=== PATIENT | female | born 1955 | race Hispanic/Latino ===

== ENCOUNTER → 2018-11-22 | Outpatient (CLI) | payer OTHER | END | disposition home or self-care (01) | LOC: RAH 08:47 | PROVIDERS: ATTEND Internal Medicine Gastroenterology | DX: K74.3 Primary biliary cirrhosis (principal) | CPT/HCPCS: 76700; 93975 ==

== ENCOUNTER 2019-08-22 12:15 | Inpatient (IN) | payer OTHER ==
[~2019-08-22] VITALS: Ht 157.5 cm; Wt 65.8 kg
[2019-08-22 13:43] LABS: ABG BASE EXCESS 0.2 mmol/L (-2.0-3.0); ABG HCO3 22.8 mmol/L (21.0-28.0); ABG OXYGEN SATURATION 89.3 % (95.0-99.0); ABG PCO2 32 mmHg (32-45)
[2019-08-22 14:18] LABS: BASOPHILS % (AUTO) 0.2 % (0.0-5.0); HEMATOCRIT 39.4 % (36-48); LYMPHOCYTES % (AUTO) 47.5 % (21.0-51.0); MEAN CORPUSCULAR HEMOGLOBIN 28.8 pg (27.0-33.0); MEAN CORPUSCULAR VOLUME 87.4 fL (79-99); MONOCYTES % (AUTO) 8.1 % (3.0-13.0); NEUTROPHILS % (AUTO) 43.4 % (40.0-77.0); PLATELET COUNT (AUTO) 109 K/uL (130-400); RED BLOOD CELL COUNT(AUTO) 4.51 MIL/uL (4.00-5.50); RED CELL DISTRIBUTION WIDTH 12.8 % (11.0-15.5); WHITE BLOOD COUNT (AUTO) 4.9 K/uL (4.8-10.8)
[2019-08-22 14:24] LABS: INR 0.98 (0.85-1.15); PROTHROMBIN TIME 10.6 SEC (9.6-11.6)
[2019-08-22] MEDS ORDERED: GUAIFENESIN-DM 200/20 MG 10 ML PO PRN (16:00)
[2019-08-22] MEDS ORDERED: DiphenhydrAMINE HCL 50 MG/ML VIAL IV PRN (16:00)
[2019-08-22] MEDS ORDERED: ONDANSETRON HCL 4 MG/2 ML VIAL IV PRN (16:00)
[2019-08-22] MEDS: CEFTRIAXONE SODIUM 1 GM IVP SCH (16:00)
[2019-08-22] MEDS ORDERED: ERGOCALCIFEROL (VITAMIN D2) 50,000 UNIT CAPSULE PO ONE (16:00)
[2019-08-22] MEDS ORDERED: DIPHENHYDRAMINE HCL 25 MG CAPSULE PO PRN (16:00)
[2019-08-22] MEDS ORDERED: MAG HYDROX/AL HYDROX/SIMETH ES 30 ML SUSP UDCUP PO PRN (16:00)
[2019-08-22] MEDS ORDERED: ACETAMINOPHEN 325 MG TAB PO PRN ×2 (16:00)
[2019-08-22] MEDS ORDERED: NITROGLYCERIN 0.4 MG SL TAB SL PRN (16:00)
[2019-08-22] MEDS ORDERED: LACTULOSE 20 GM/30 ML UDCUP PO PRN (16:00)
[2019-08-22] MEDS ORDERED: HYDRALAZINE HCL 20 MG/ML VIAL IV PRN (16:00)
[2019-08-22 16:11] LABS: CREATININE 0.7 mg/dL (0.5-1.5)
[2019-08-22 16:15] LABS: ALBUMIN 3.1 g/dL (3.5-5.0); BILIRUBIN,TOTAL 0.3 mg/dL (0.2-1.0); CRP QUANTITATIVE 74.8 mg/L (0.00-9.0); TOTAL PROTEIN, SERUM 7.3 g/dL (6.0-8.3)
[2019-08-22] MEDS ORDERED: ERGOCALCIFEROL (VITAMIN D2) 50,000 UNIT CAPSULE ONE (17:45)
[2019-08-22] MEDS ORDERED: CEFTRIAXONE SODIUM 1 GM ONE (17:45)
[2019-08-22] MEDS: FAMOTIDINE 20MG TAB 20 MG TAB PO SCH (21:00)
[2019-08-22] MEDS: ENOXAPARIN SODIUM 40 MG/0.4 ML SYRINGE SQ SCH (21:00)
[2019-08-22] MEDS: DOXYCYCLINE HYCLATE 100 MG TABLET PO SCH (21:00)
[2019-08-22] MEDS: ACETYLCYSTEINE 600 MG CAPSULE PO SCH (21:00)
[2019-08-22] MEDS: BENZONATATE 100 MG CAPSULE PO SCH (21:00)
[2019-08-22] MEDS: METHYLPREDNISOLONE SOD SUCC 40MG/ML 1ML IVP SCH (21:00)
[2019-08-23] MEDS ORDERED: METHYLPREDNISOLONE SOD SUCC 40MG/ML 1ML ONE (00:39)
[2019-08-23] MEDS ORDERED: ASCORBIC ACID 500 MG TAB ONE (00:39)
[2019-08-23] MEDS ORDERED: DOXYCYCLINE HYCLATE 100 MG TABLET PO ONE (00:39)
[2019-08-23] MEDS ORDERED: ZINC SULFATE 220 CAPSULE ONE (00:40)
[2019-08-23] MEDS ORDERED: BENZONATATE 100 MG CAPSULE PO ONE (00:40)
[2019-08-23] MEDS ORDERED: ENOXAPARIN SODIUM 40 MG/0.4 ML SYRINGE SQ ONE (00:41)
[2019-08-23] MEDS ORDERED: FAMOTIDINE/PF 20 MG/2 ML VIAL IV ONE (00:41)
[2019-08-23 02:20] VITALS: BP 112/66
[2019-08-23] MEDS: CEFTRIAXONE SODIUM 1 GM IVP SCH ×2 (04:12→16:46)
[2019-08-23 04:52] VITALS: BP 137/51
[2019-08-23 06:58] LABS: BASOPHILS % (AUTO) 0.2 % (0.0-5.0); LYMPHOCYTES % (AUTO) 35.2 % (21.0-51.0); MEAN CORPUSCULAR HGB CONC 33.5 g/dL (32.0-36.0); MEAN CORPUSCULAR VOLUME 86.7 fL (79-99); MONOCYTES % (AUTO) 7.1 % (3.0-13.0); NEUTROPHILS % (AUTO) 57.3 % (40.0-77.0); PLATELET COUNT (AUTO) 142 K/uL (130-400); RED BLOOD CELL COUNT(AUTO) 4.27 MIL/uL (4.00-5.50); RED CELL DISTRIBUTION WIDTH 12.9 % (11.0-15.5); WHITE BLOOD COUNT (AUTO) 5.7 K/uL (4.8-10.8)
[2019-08-23 07:07] LABS: ALBUMIN 2.8 g/dL (3.5-5.0); BILIRUBIN,TOTAL 0.3 mg/dL (0.2-1.0); CREATININE 0.7 mg/dL (0.5-1.5); CRP QUANTITATIVE 109.1 mg/L (0.00-9.0); POTASSIUM 3.5 mmol/L (3.5-5.1); TOTAL PROTEIN, SERUM 6.9 g/dL (6.0-8.3)
[2019-08-23 08:00] VITALS: BP 122/60
[2019-08-23] MEDS: FAMOTIDINE 20MG TAB 20 MG TAB PO SCH ×2 (08:22→19:52)
[2019-08-23] MEDS: ACETYLCYSTEINE 600 MG CAPSULE PO SCH ×2 (08:22→19:52)
[2019-08-23] MEDS: DOXYCYCLINE HYCLATE 100 MG TABLET PO SCH ×2 (08:22→19:52)
[2019-08-23] MEDS: ASCORBIC ACID 500 MG TAB PO SCH (08:22)
[2019-08-23] MEDS: ZINC SULFATE 220 CAPSULE PO SCH (08:23)
[2019-08-23] MEDS: ENOXAPARIN SODIUM 40 MG/0.4 ML SYRINGE SQ SCH ×2 (08:23→19:53)
[2019-08-23] MEDS: METHYLPREDNISOLONE SOD SUCC 40MG/ML 1ML IVP SCH ×3 (08:24→19:52)
[2019-08-23] MEDS: BENZONATATE 100 MG CAPSULE PO SCH ×3 (08:24→19:52)
[2019-08-23] MEDS ORDERED: ENOXAPARIN SODIUM 40 MG/0.4 ML SYRINGE SQ SCH (09:00)
--- NOTE | 2019-08-23 10:43 | NUR ---
ISABEL NOTE/IA UNABLE TO MEET WITH PATIENT IN ROOM DUE TO IN RESTRICTIVE PART OF HOSPITAL. DAUGHTER, SHEILA SPENCER, CALLED. PER DAUGHTER, PATIENT LIVES WITH SPOUSE, INDEPENDENT WITH ADLS, NO DME IN USE, AND FEELS SAFE TO RETURN HOME AFTER HOSPITAL DISCHARGE. Addendum: 08/23/19 at 1046 by RAFIA YANES RN CM Amended: Links added.
--- NOTE | 2019-08-23 10:49 | NUR ---
CHART CHECK COMPLETED. Pt IS A 64 Y.O. FEMALE ADMITTED SECONDARY TO ACUTE RESPIRATORY FAILURE, COVID 19. Pt HAS A PAST MEDICAL HISTORY OF HYPERTENSION, HIGH CHOLESTEROL, CABG, CAD. Pt CURRENTLY ON REGULAR TEXTURE, THIN LIQUIDS. NO S/S OF ASPIRATION REPORTED AT THIS TIME. SKILLED SPEECH THERAPY IS NOT RECOMMENDED AT THIS TIME. Addendum: 08/23/19 at 1052 by AILYN CONTRERAS, [facility] Amended: Links added.
[2019-08-23 12:00] VITALS: BP 114/62
[2019-08-23 15:30] VITALS: BP 122/76
--- NOTE | 2019-08-23 17:47 | NUR ---
AAOX4 IN BED IN NO APPARENT DISTRESS. COVID19 PUI, ISOLATION PRECAUTIONS MAINTAINED. DENIES ANY NEEDS/PAIN. RESPIRATIONS EVEN AND UNLABORED AT REST. O2 VIA NC AT 4L, O2 SATS MAINTAINING. SOB WITH EXERTION. GOOD APPETITE. MEDICATIONS ADMINISTERED DIRECTED. CONTINUOUS MONITORING ONGOING. SAFETY MEASURES IN PLACE.
[2019-08-23 19:00] VITALS: BP 132/74
--- NOTE | 2019-08-23 20:00 | NUR ---
ASSESSMENT NOTE/TEACHING PATIENT AWAKE, ALERT, OX4, NO SOB, NO C/O PAIN AT THIS TIME, NO RESPIRATORY DISTRESS , OXYGEN AT 4 L N/C , TEACH PATIENT PLAN OF CARE AND EXPECTED OUTCOME, PATIENT VERBALIZES UNDERSTANDING VIA TEACH BACK
--- NOTE | 2019-08-23 22:59 | NUR ---
OXYGEN DECREASE OXYGEN TO 3 L N/C SATURATION 94 % , NO RESPIRATORY DISTRESS AT THIS TIME
[2019-08-24] VITALS: BP 128/83
--- NOTE | 2019-08-24 | NUR ---
NURSING OBS RESTING CONTINUE WITH OXYGEN AT 3 L N/C,SAT 94/95 %, CALL CAMACHO AT REACH
[2019-08-24 04:00] VITALS: BP 129/75
[2019-08-24] MEDS ORDERED: URSO500T10 PO (04:24)
[2019-08-24] MEDS ORDERED: metoprolol er PO (04:24)
[2019-08-24] MEDS ORDERED: FLUT1BLS3 IH (04:24)
[2019-08-24] MEDS ORDERED: LEVO75TA10 PO (04:24)
[2019-08-24] MEDS: CEFTRIAXONE SODIUM 1 GM IVP SCH ×2 (04:32→16:30)
[2019-08-24 05:36] LABS: BASOPHILS % (AUTO) 0.2 % (0.0-5.0); HEMATOCRIT 36.3 % (36-48); LYMPHOCYTES % (AUTO) 37.7 % (21.0-51.0); MEAN CORPUSCULAR HEMOGLOBIN 28.4 pg (27.0-33.0); MEAN CORPUSCULAR HGB CONC 33.1 g/dL (32.0-36.0); MONOCYTES % (AUTO) 9.7 % (3.0-13.0); NEUTROPHILS % (AUTO) 52.1 % (40.0-77.0); PLATELET COUNT (AUTO) 170 K/uL (130-400); RED BLOOD CELL COUNT(AUTO) 4.22 MIL/uL (4.00-5.50); RED CELL DISTRIBUTION WIDTH 12.8 % (11.0-15.5); WHITE BLOOD COUNT (AUTO) 5.8 K/uL (4.8-10.8)
[2019-08-24 06:56] LABS: ALBUMIN 2.6 g/dL (3.5-5.0); BILIRUBIN,TOTAL 0.3 mg/dL (0.2-1.0); CREATININE 0.6 mg/dL (0.5-1.5); CRP QUANTITATIVE 88.7 mg/L (0.00-9.0); POTASSIUM 3.3 mmol/L (3.5-5.1); TOTAL PROTEIN, SERUM 6.8 g/dL (6.0-8.3)
[2019-08-24 08:00] VITALS: BP 150/74
--- NOTE | 2019-08-24 08:00 | NUR ---
AAOX4 IN BED IN NO APPARENT DISTRESS. COVID19+, ISOLATION PRECAUTIONS MAINTAINED. DENIES ANY NEEDS/PAIN. RESPIRATIONS EVEN AND UNLABORED AT REST. O2 VIA NC AT 3L, O2 SAT STABLE. PLAN OF CARE REVIEWED. CONTINUOUS MONITORING ONGOING. SAFETY MEASURES IN PLACE.
[2019-08-24] MEDS: ZINC SULFATE 220 CAPSULE PO SCH (08:40)
[2019-08-24] MEDS: ASCORBIC ACID 500 MG TAB PO SCH (08:40)
[2019-08-24] MEDS: DOXYCYCLINE HYCLATE 100 MG TABLET PO SCH ×2 (08:40→19:37)
[2019-08-24] MEDS: ACETYLCYSTEINE 600 MG CAPSULE PO SCH ×2 (08:41→19:37)
[2019-08-24] MEDS: BENZONATATE 100 MG CAPSULE PO SCH ×3 (08:41→19:37)
[2019-08-24] MEDS: METHYLPREDNISOLONE SOD SUCC 40MG/ML 1ML IVP SCH ×3 (08:41→19:37)
[2019-08-24] MEDS: ENOXAPARIN SODIUM 40 MG/0.4 ML SYRINGE SQ SCH ×2 (08:42→19:38)
[2019-08-24] MEDS: FAMOTIDINE 20MG TAB 20 MG TAB PO SCH ×2 (09:00→19:37)
[2019-08-24 11:30] VITALS: BP 142/78
[2019-08-24 15:30] VITALS: BP 124/75
[2019-08-24 19:21] VITALS: BP 131/80
--- NOTE | 2019-08-24 20:00 | NUR ---
assessment note patient resting comfortably, oxygen at 3 n.c , continue with weaning parameters , teach plan of care and expected outcome, verbalizes understanding via teach back
[2019-08-25] VITALS (7 sets, daily range): BP systolic 143–164; BP diastolic 77–94
--- NOTE | 2019-08-25 00:30 | NUR ---
oxygen weaning oxygen parameters, oxygen saturation 95 % on 3 l n/c, decrease oxygen to 2 ln/c saturation 93 94 % CONTINUE TO MONITOR OXYGEN SATURATION
[2019-08-25] MEDS: CEFTRIAXONE SODIUM 1 GM IVP SCH ×2 (04:17→15:00)
[2019-08-25 06:12] LABS: BASOPHILS % (AUTO) 0.1 % (0.0-5.0); HEMATOCRIT 37.3 % (36-48); LYMPHOCYTES % (AUTO) 25.4 % (21.0-51.0); MEAN CORPUSCULAR HEMOGLOBIN 29.1 pg (27.0-33.0); MEAN CORPUSCULAR HGB CONC 33.8 g/dL (32.0-36.0); MEAN CORPUSCULAR VOLUME 86.1 fL (79-99); MONOCYTES % (AUTO) 7.3 % (3.0-13.0); NEUTROPHILS % (AUTO) 66.8 % (40.0-77.0); PLATELET COUNT (AUTO) 213 K/uL (130-400); RED BLOOD CELL COUNT(AUTO) 4.33 MIL/uL (4.00-5.50); RED CELL DISTRIBUTION WIDTH 12.7 % (11.0-15.5); WHITE BLOOD COUNT (AUTO) 7.1 K/uL (4.8-10.8)
[2019-08-25 06:27] LABS: ALBUMIN 2.5 g/dL (3.5-5.0); BILIRUBIN,TOTAL 0.3 mg/dL (0.2-1.0); CREATININE 0.7 mg/dL (0.5-1.5); CRP QUANTITATIVE 30.4 mg/L (0.00-9.0); POTASSIUM 3.8 mmol/L (3.5-5.1); TOTAL PROTEIN, SERUM 6.7 g/dL (6.0-8.3)
[2019-08-25] MEDS: FAMOTIDINE 20MG TAB 20 MG TAB PO SCH ×2 (09:00→19:32)
[2019-08-25] MEDS: BENZONATATE 100 MG CAPSULE PO SCH ×3 (09:11→19:31)
[2019-08-25] MEDS: ZINC SULFATE 220 CAPSULE PO SCH (09:11)
[2019-08-25] MEDS: ASCORBIC ACID 500 MG TAB PO SCH (09:11)
[2019-08-25] MEDS: ACETYLCYSTEINE 600 MG CAPSULE PO SCH ×2 (09:11→19:32)
[2019-08-25] MEDS: DOXYCYCLINE HYCLATE 100 MG TABLET PO SCH ×2 (09:11→19:31)
[2019-08-25] MEDS: ENOXAPARIN SODIUM 40 MG/0.4 ML SYRINGE SQ SCH (09:12)
[2019-08-25] MEDS: METHYLPREDNISOLONE SOD SUCC 40MG/ML 1ML IVP SCH ×3 (09:12→19:32)
--- NOTE | 2019-08-25 18:24 | NUR ---
AAOX4 LYING IN BED IN NO APPARENT DISTRESS. COVID19+, ISOLATION PRECAUTIONS MAINTAINED. DENIES ANY NEEDS/PAIN. RESPIRATIONS EVEN AND UNLABORED AT REST. O2 VIA NC AT 1L, O2 SAT STABLE. CONTINUOUS MONITORING ONGOING. SAFETY MEASURES IN PLACE.
[2019-08-25] MEDS: URSODIOL 500 MG PO SCH (19:32)
--- NOTE | 2019-08-25 20:00 | NUR ---
ASSESSMENT NOTE PATIENT AWAKE ALERT, OX3, NO SOB , NO C.O PAIN AT THIS TIME, O2 AT 2 L N/C, NO RESPIRATORY DISTRESS AT THIS TIME, CONTINUE WEANING PARAMETERS WITH OXYGEN, TEACH PATIENT PLAN OF CARE AND EXPECTED OUTCOME, PATIENT VERBALIZES UNDERSTANDING VIA TEACH BACK
[2019-08-26 03:29] VITALS: BP 165/89
[2019-08-26] MEDS: CEFTRIAXONE SODIUM 1 GM IVP SCH ×2 (04:56→16:58)
[2019-08-26 08:26] VITALS: BP 161/69
[2019-08-26] MEDS: TRELEGY ELLIPTA IH SCH (09:00)
[2019-08-26] MEDS: URSODIOL 500 MG PO SCH ×2 (09:00→20:00)
[2019-08-26] MEDS: FAMOTIDINE 20MG TAB 20 MG TAB PO SCH ×2 (09:00→19:42)
[2019-08-26] MEDS: ASCORBIC ACID 500 MG TAB PO SCH (09:41)
[2019-08-26] MEDS: METHYLPREDNISOLONE SOD SUCC 40MG/ML 1ML IVP SCH ×3 (09:41→19:42)
[2019-08-26] MEDS: DOXYCYCLINE HYCLATE 100 MG TABLET PO SCH ×2 (09:41→19:42)
[2019-08-26] MEDS: METOPROLOL SUCCINATE 50 MG TAB.SR.24H PO SCH (09:41)
[2019-08-26] MEDS: ACETYLCYSTEINE 600 MG CAPSULE PO SCH ×2 (09:41→19:42)
[2019-08-26] MEDS: ZINC SULFATE 220 CAPSULE PO SCH (09:41)
[2019-08-26] MEDS: BENZONATATE 100 MG CAPSULE PO SCH ×3 (09:41→19:42)
[2019-08-26] MEDS: LEVOTHYROXINE 75 MCG TABLET PO SCH (09:41)
[2019-08-26] MEDS: ENOXAPARIN SODIUM 40 MG/0.4 ML SYRINGE SQ SCH (09:42)
[2019-08-26 12:23] VITALS: BP 159/79
[2019-08-26 17:24] VITALS: BP 166/78
--- NOTE | 2019-08-26 17:50 | NUR ---
AAOX4. OOB IN CHAIR IN NO APPARENT DISTRESS. COVID19+, ISOLATION PRECAUTIONS MAINTAINED. DENIES ANY NEEDS/PAIN. RESPIRATIONS EVEN AND UNLABORED AT REST. MILD SOB NOTED FROM TRANSFERRING FROM BED TO CHAIR. O2 VIA NC AT 2L, O2 SAT STABLE. CONTINUOUS MONITORING ONGOING. SAFETY MEASURES IN PLACE.
[2019-08-26 20:00] VITALS: BP 164/90
--- NOTE | 2019-08-26 20:00 | NUR ---
PT IS AA03. JUSTIN. STATES IS FEELING MUCH BETTER. WEANED DOWN TO 1LPM NASAL CANNULA. STATES SHE FELT SOB EARLIER AND WHEN AMBULATING. POSSIBLE DC FOR THE AM. HAD BM TODAY. ABLE TO TAKE MEDICATIONS WELL. NO CONCERNS AT THIS TIME.
[2019-08-26 23:35] VITALS: BP 152/73
[2019-08-27 04:02] VITALS: BP 166/81
[2019-08-27] MEDS: CEFTRIAXONE SODIUM 1 GM IVP SCH (04:43)
--- NOTE | 2019-08-27 04:43 | NUR ---
SBP 166, HYDRALAZINE PRN GIVEN AT THIS TIME.
[2019-08-27 06:31] LABS: BASOPHILS % (AUTO) 0.1 % (0.0-5.0); HEMATOCRIT 36.9 % (36-48); MEAN CORPUSCULAR HEMOGLOBIN 28.4 pg (27.0-33.0); MEAN CORPUSCULAR HGB CONC 33.3 g/dL (32.0-36.0); MEAN CORPUSCULAR VOLUME 85.2 fL (79-99); MONOCYTES % (AUTO) 6.9 % (3.0-13.0); NEUTROPHILS % (AUTO) 61.9 % (40.0-77.0); PLATELET COUNT (AUTO) 227 K/uL (130-400); RED BLOOD CELL COUNT(AUTO) 4.33 MIL/uL (4.00-5.50); RED CELL DISTRIBUTION WIDTH 12.5 % (11.0-15.5); WHITE BLOOD COUNT (AUTO) 6.8 K/uL (4.8-10.8)
[2019-08-27 06:57] LABS: ALANINE AMINOTRANSFERASE 34 U/L (12-78); ALBUMIN 2.5 g/dL (3.5-5.0); ASPARTATE AMINOTRANSFERASE 32 U/L (10-37); BILIRUBIN,TOTAL 0.3 mg/dL (0.2-1.0); CARBON DIOXIDE 24 mmol/L (21-32); CHLORIDE 105 mmol/L (101-111); CREATININE 0.6 mg/dL (0.5-1.5); GLOMERULAR FILTR. RATE CALC 107 mL/min (>60); GLUCOSE,RANDOM 193 mg/dL (70-105); LACTATE DEHYDROGENASE 280 U/L (81-234); POTASSIUM 3.8 mmol/L (3.5-5.1); SODIUM SERUM 138 mmol/L (136-145); TOTAL PROTEIN, SERUM 6.3 g/dL (6.0-8.3); UREA NITROGEN, BLOOD 21 mg/dL (7-18)
[2019-08-27 07:26] LABS: HEMOGLOBIN A1C 6.9 % (4.0-6.0)
[2019-08-27] MEDS: DOXYCYCLINE HYCLATE 100 MG TABLET PO SCH ×2 (07:50→19:53)
[2019-08-27] MEDS: METFORMIN HCL 500 MG TABLET PO SCH ×3 (07:50→16:07)
[2019-08-27] MEDS: BENZONATATE 100 MG CAPSULE PO SCH ×3 (07:50→21:41)
[2019-08-27] MEDS: ASCORBIC ACID 500 MG TAB PO SCH (07:50)
[2019-08-27] MEDS: LEVOTHYROXINE 75 MCG TABLET PO SCH (07:50)
[2019-08-27] MEDS: METHYLPREDNISOLONE SOD SUCC 40MG/ML 1ML IVP SCH (07:50)
[2019-08-27] MEDS: ACETYLCYSTEINE 600 MG CAPSULE PO SCH ×2 (07:50→19:53)
[2019-08-27] MEDS: ZINC SULFATE 220 CAPSULE PO SCH (07:50)
[2019-08-27] MEDS: TRELEGY ELLIPTA IH SCH (07:51)
[2019-08-27] MEDS: URSODIOL 500 MG PO SCH ×2 (07:51→19:53)
[2019-08-27] MEDS: ENOXAPARIN SODIUM 40 MG/0.4 ML SYRINGE SQ SCH (07:51)
[2019-08-27] MEDS: FAMOTIDINE 20MG TAB 20 MG TAB PO SCH ×2 (07:51→19:53)
[2019-08-27] MEDS: METOPROLOL SUCCINATE 50 MG TAB.SR.24H PO SCH (07:52)
[2019-08-27 08:00] VITALS: BP 130/64
[2019-08-27] MEDS ORDERED: APIX2.5T PO (10:32)
[2019-08-27] MEDS ORDERED: METF-444 PO (10:32)
[2019-08-27] MEDS ORDERED: DEXA6TAB PO (10:32)
[2019-08-27] MEDS ORDERED: BENZ-39 PO (11:22)
[2019-08-27 12:00] VITALS: BP 138/73
[2019-08-27] MEDS: DEXAMETHASONE 4 MG TAB PO SCH ×2 (15:10→21:41)
[2019-08-27 16:00] VITALS: BP 139/72
[2019-08-27 20:57] VITALS: BP 153/81
[2019-08-28 00:06] VITALS: BP 145/91
[2019-08-28 03:59] VITALS: BP 157/82
[2019-08-28 05:02] LABS: BASOPHILS % (AUTO) 0.2 % (0.0-5.0); HEMATOCRIT 37.8 % (36-48); LYMPHOCYTES % (AUTO) 22.6 % (21.0-51.0); MEAN CORPUSCULAR HEMOGLOBIN 28.5 pg (27.0-33.0); MEAN CORPUSCULAR HGB CONC 33.3 g/dL (32.0-36.0); MEAN CORPUSCULAR VOLUME 85.5 fL (79-99); MONOCYTES % (AUTO) 5.9 % (3.0-13.0); NEUTROPHILS % (AUTO) 67.5 % (40.0-77.0); PLATELET COUNT (AUTO) 235 K/uL (130-400); RED BLOOD CELL COUNT(AUTO) 4.42 MIL/uL (4.00-5.50); RED CELL DISTRIBUTION WIDTH 12.5 % (11.0-15.5); WHITE BLOOD COUNT (AUTO) 8.3 K/uL (4.8-10.8)
[2019-08-28 06:29] LABS: ALANINE AMINOTRANSFERASE 34 U/L (12-78); ALBUMIN 2.5 g/dL (3.5-5.0); ASPARTATE AMINOTRANSFERASE 25 U/L (10-37); BILIRUBIN,TOTAL 0.4 mg/dL (0.2-1.0); CARBON DIOXIDE 22 mmol/L (21-32); CHLORIDE 104 mmol/L (101-111); CREATININE 0.6 mg/dL (0.5-1.5); GLOMERULAR FILTR. RATE CALC 107 mL/min (>60); GLUCOSE,RANDOM 177 mg/dL (70-105); LACTATE DEHYDROGENASE 269 U/L (81-234); POTASSIUM 3.7 mmol/L (3.5-5.1); SODIUM SERUM 138 mmol/L (136-145); TOTAL PROTEIN, SERUM 6.4 g/dL (6.0-8.3); UREA NITROGEN, BLOOD 24 mg/dL (7-18)
[2019-08-28 08:00] VITALS: BP 156/76
[2019-08-28] MEDS: TRELEGY ELLIPTA IH SCH (08:34)
[2019-08-28] MEDS: DEXAMETHASONE 4 MG TAB PO SCH ×3 (08:34→20:45)
[2019-08-28] MEDS: METFORMIN HCL 500 MG TABLET PO SCH ×3 (08:34→16:53)
[2019-08-28] MEDS: DOXYCYCLINE HYCLATE 100 MG TABLET PO SCH ×2 (08:35→20:46)
[2019-08-28] MEDS: METOPROLOL SUCCINATE 50 MG TAB.SR.24H PO SCH (08:35)
[2019-08-28] MEDS: FAMOTIDINE 20MG TAB 20 MG TAB PO SCH ×2 (08:35→20:37)
[2019-08-28] MEDS: ASCORBIC ACID 500 MG TAB PO SCH (08:35)
[2019-08-28] MEDS: ACETYLCYSTEINE 600 MG CAPSULE PO SCH ×2 (08:35→20:46)
[2019-08-28] MEDS: BENZONATATE 100 MG CAPSULE PO SCH ×3 (08:35→20:45)
[2019-08-28] MEDS: ZINC SULFATE 220 CAPSULE PO SCH (08:35)
[2019-08-28] MEDS: LEVOTHYROXINE 75 MCG TABLET PO SCH (08:35)
[2019-08-28] MEDS: URSODIOL 500 MG PO SCH ×2 (08:36→20:46)
[2019-08-28] MEDS: ENOXAPARIN SODIUM 40 MG/0.4 ML SYRINGE SQ SCH (08:36)
--- NOTE | 2019-08-28 11:40 | NUR ---
FAMILY NOTIFICATION AND UPDATE UNABLE TO SPEAK TO KATHARINE NIETO-NO ANSWER
--- NOTE | 2019-08-28 13:20 | NUR ---
FAMILY NOTIFICATION AND UPDATE UNABLE TO CONTACT KATHARINE VASQUEZARADO-NO ANSWER
--- NOTE | 2019-08-28 15:57 | NUR ---
Family notification Addendum for 08/27/2019; Attempted to call Skip Lemon to give him an update regarding pt's condition. No answer
[2019-08-28 16:00] VITALS: BP 146/71
--- NOTE | 2019-08-28 16:29 | NUR ---
AAOX4. RESTING QUIETLY IN BED AT THIS TIME IN NO APPARENT DISTRESS. COVID19+, ISOLATION PRECAUTIONS MAINTAINED. DENIES ANY NEEDS/PAIN. RESPIRATIONS EVEN AND UNLABORED AT REST. O2 VIA NC AT 2L, O2 SAT STABLE. DESATS WITHOUT O2, HOME O2 EVALUATION FOR DISCHARGE PLAN. CONTINUOUS MONITORING ONGOING. SAFETY MEASURES IN PLACE.
[2019-08-28 20:04] VITALS: BP 174/82
[2019-08-29] VITALS: BP 185/86
[2019-08-29 04:00] VITALS: BP 178/75
[2019-08-29 05:42] LABS: BASOPHILS % (AUTO) 0.3 % (0.0-5.0); HEMATOCRIT 37.9 % (36-48); LYMPHOCYTES % (AUTO) 21.4 % (21.0-51.0); MEAN CORPUSCULAR HEMOGLOBIN 28.6 pg (27.0-33.0); MEAN CORPUSCULAR HGB CONC 33.2 g/dL (32.0-36.0); MEAN CORPUSCULAR VOLUME 85.9 fL (79-99); MONOCYTES % (AUTO) 6.1 % (3.0-13.0); NEUTROPHILS % (AUTO) 67.3 % (40.0-77.0); PLATELET COUNT (AUTO) 260 K/uL (130-400); RED BLOOD CELL COUNT(AUTO) 4.41 MIL/uL (4.00-5.50); RED CELL DISTRIBUTION WIDTH 12.5 % (11.0-15.5); WHITE BLOOD COUNT (AUTO) 10.2 K/uL (4.8-10.8)
[2019-08-29 06:19] LABS: ALANINE AMINOTRANSFERASE 31 U/L (12-78); ALBUMIN 2.4 g/dL (3.5-5.0); ASPARTATE AMINOTRANSFERASE 20 U/L (10-37); BILIRUBIN,TOTAL 0.4 mg/dL (0.2-1.0); CARBON DIOXIDE 21 mmol/L (21-32); CHLORIDE 105 mmol/L (101-111); CREATININE 0.7 mg/dL (0.5-1.5); GLOMERULAR FILTR. RATE CALC 90 mL/min (>60); GLUCOSE,RANDOM 179 mg/dL (70-105); LACTATE DEHYDROGENASE 247 U/L (81-234); POTASSIUM 3.9 mmol/L (3.5-5.1); SODIUM SERUM 136 mmol/L (136-145); TOTAL PROTEIN, SERUM 6.1 g/dL (6.0-8.3); UREA NITROGEN, BLOOD 28 mg/dL (7-18)
[2019-08-29 06:24] LABS: CRP QUANTITATIVE < 2.00 mg/L (0.00-9.0)
[2019-08-29 08:00] VITALS: BP 143/72
[2019-08-29] MEDS: ASCORBIC ACID 500 MG TAB PO SCH (08:45)
[2019-08-29] MEDS: METFORMIN HCL 500 MG TABLET PO SCH ×3 (08:45→16:33)
[2019-08-29] MEDS: LEVOTHYROXINE 75 MCG TABLET PO SCH (08:45)
[2019-08-29] MEDS: ACETYLCYSTEINE 600 MG CAPSULE PO SCH ×2 (08:45→20:09)
[2019-08-29] MEDS: FAMOTIDINE 20MG TAB 20 MG TAB PO SCH ×2 (08:45→20:09)
[2019-08-29] MEDS: DOXYCYCLINE HYCLATE 100 MG TABLET PO SCH (08:45)
[2019-08-29] MEDS: BENZONATATE 100 MG CAPSULE PO SCH ×3 (08:46→20:10)
[2019-08-29] MEDS: DEXAMETHASONE 4 MG TAB PO SCH ×3 (08:46→20:12)
[2019-08-29] MEDS: URSODIOL 500 MG PO SCH ×2 (08:46→20:10)
[2019-08-29] MEDS: TRELEGY ELLIPTA IH SCH (08:46)
[2019-08-29] MEDS: ENOXAPARIN SODIUM 40 MG/0.4 ML SYRINGE SQ SCH (08:48)
[2019-08-29] MEDS: ZINC SULFATE 220 CAPSULE PO SCH (08:48)
[2019-08-29] MEDS: METOPROLOL SUCCINATE 50 MG TAB.SR.24H PO SCH (08:48)
--- NOTE | 2019-08-29 11:42 | NUR ---
RDSCREEN - LOS X 7 Pt admitted with [place], Positive COVID-19. Regular diet order in place. Pt tolerating diet order with no report of GI distress, PO intake at 75%. Pt with supplemental Zinc, Vitamin C, N-acetylcysteine in place. Recommend 60ml Promod QD RD to continue to monitor. Please notify as additional nutrition concerns arise. Thank you.
[2019-08-29 12:00] VITALS: BP 109/55
--- NOTE | 2019-08-29 12:33 | NUR ---
CM NOTE/HOME O2 EVAL NOT READY NOTED OXYGEN SATURATION AT 91% WITH 2LITERS OF OXYGEN, YESTERDAY, PATIENT WAS ON 1LPM SATING AT 93%. PLACED CALL TO PRIMARY NURSE, MOHSEN TUTTLE. PER RN, STATES PATIENT SEES TO BE DETERIORATING RATHER THAN IMPROVING AND COSULTS MADE OUT TO PULMONOLOGY AND INFECTION CONTROL. 02 EVAL WILL BE PLACED ON HOLD D/T DETERIORATING. DR. CRANE MADE AWARE.
[2019-08-29] MEDS: FLUCONAZOLE 100 MG TAB PO SCH (14:41)
[2019-08-29 16:00] VITALS: BP 147/82
--- NOTE | 2019-08-29 18:59 | NUR ---
AAOX4. RESTING QUIETLY IN BED AT THIS TIME IN NO APPARENT DISTRESS. COVID19+, ISOLATION PRECAUTIONS MAINTAINED. DENIES ANY NEEDS/PAIN. RESPIRATIONS EVEN AND UNLABORED AT REST. O2 VIA NC AT 2L, O2 SAT STABLE. DESATS WITHOUT O2. CONTINUOUS MONITORING ONGOING. SAFETY MEASURES IN PLACE.
--- NOTE | 2019-08-29 20:00 | NUR ---
assessment /plasma patient awake, alert, ox3, oxygen at 2 l n/c, sob on exertion only, discussed with patient regarding pending order for convalescent plasma, explained in detail regarding treatment with plasma, per patient will discuss with daughter and give us a answer by tomorrow night, explained to patient if she agrees consent needed to be signed, patient verbalizes understanding, plan of care and expected outcome, call rodrigez at reach
[2019-08-29 20:56] VITALS: BP 135/63
[2019-08-29] MEDS: CLOTRIMAZOLE 10 MG TROCHE MM SCH (21:45)
[2019-08-30] VITALS (7 sets, daily range): BP systolic 134–177; BP diastolic 63–73
[2019-08-30] MEDS: CLOTRIMAZOLE 10 MG TROCHE MM SCH ×3 (02:58→19:43)
[2019-08-30] MEDS ORDERED: PHARMACY COMMUNICATION MISC SCH (03:00)
--- NOTE | 2019-08-30 03:45 | NUR ---
plasma consent patient agreed to convalescent plasma , consents signed , will notify charge of pending plasma order for the am
[2019-08-30 06:32] LABS: BASOPHILS % (AUTO) 0.3 % (0.0-5.0); HEMATOCRIT 39.1 % (36-48); LYMPHOCYTES % (AUTO) 18.4 % (21.0-51.0); MEAN CORPUSCULAR HEMOGLOBIN 29.3 pg (27.0-33.0); MEAN CORPUSCULAR HGB CONC 33.5 g/dL (32.0-36.0); MEAN CORPUSCULAR VOLUME 87.5 fL (79-99); MONOCYTES % (AUTO) 5.6 % (3.0-13.0); NEUTROPHILS % (AUTO) 70.8 % (40.0-77.0); PLATELET COUNT (AUTO) 302 K/uL (130-400); RED BLOOD CELL COUNT(AUTO) 4.47 MIL/uL (4.00-5.50); RED CELL DISTRIBUTION WIDTH 12.6 % (11.0-15.5); WHITE BLOOD COUNT (AUTO) 11.2 K/uL (4.8-10.8)
[2019-08-30 07:23] LABS: LACTATE DEHYDROGENASE 267 U/L (81-234)
[2019-08-30] MEDS: ASCORBIC ACID 500 MG TAB PO SCH (08:55)
[2019-08-30] MEDS: METOPROLOL SUCCINATE 50 MG TAB.SR.24H PO SCH (08:55)
[2019-08-30] MEDS: LEVOTHYROXINE 75 MCG TABLET PO SCH (08:55)
[2019-08-30] MEDS: FAMOTIDINE 20MG TAB 20 MG TAB PO SCH ×2 (08:55→19:43)
[2019-08-30] MEDS: METFORMIN HCL 500 MG TABLET PO SCH ×3 (08:55→16:30)
[2019-08-30] MEDS: ZINC SULFATE 220 CAPSULE PO SCH (08:55)
[2019-08-30] MEDS: TRELEGY ELLIPTA IH SCH (08:56)
[2019-08-30] MEDS: URSODIOL 500 MG PO SCH ×2 (08:56→19:48)
[2019-08-30] MEDS: BENZONATATE 100 MG CAPSULE PO SCH ×3 (08:56→19:43)
[2019-08-30] MEDS: DEXAMETHASONE 4 MG TAB PO SCH ×3 (08:56→19:43)
[2019-08-30] MEDS: ENOXAPARIN SODIUM 40 MG/0.4 ML SYRINGE SQ SCH (08:56)
[2019-08-30] MEDS: ACETYLCYSTEINE 600 MG CAPSULE PO SCH ×2 (08:58→19:43)
--- NOTE | 2019-08-30 12:39 | NUR ---
Family notification Attempted to call Skip Lemon to give him an update on pt's condition. No answer
--- NOTE | 2019-08-30 12:54 | NUR ---
CM NOTE/[facility] OXYGEN HOME OXYGEN REFERRAL FAXED TO [facility], UNDER REVIEW. CM TO FOLLOW UP ACCORDINGLY.
[2019-08-30] MEDS: FLUCONAZOLE 100 MG TAB PO SCH (14:00)
--- NOTE | 2019-08-30 17:55 | NUR ---
AAOX4. RESTING QUIETLY IN BED AT THIS TIME IN NO APPARENT DISTRESS. ISOLATION PRECAUTIONS MAINTAINED. DENIES ANY NEEDS/PAIN. RESPIRATIONS EVEN AND UNLABORED AT REST. O2 VIA NC AT 1L, O2 SAT STABLE. HAS SOB WITH EXERTION, DESATS WITHOUT O2. CONVALESCENT COVID19 PLASMA TREATMENT PENDING. CONTINUOUS MONITORING ONGOING. SAFETY MEASURES IN PLACE.
--- NOTE | 2019-08-30 19:25 | NUR ---
PULMONOLOGY CONSULT INFORMED DR. CRAVEN PENDING CONSULT, DR. CRAVEN STATES "YOU DONT NEED TO CONSULT ME IN EVERY PATIENT WITH COVID"
[2019-08-31 04:02] VITALS: BP 133/61
[2019-08-31] MEDS: CLOTRIMAZOLE 10 MG TROCHE MM SCH ×3 (04:16→19:42)
[2019-08-31 04:30] LABS: BASOPHILS % (AUTO) 0.2 % (0.0-5.0); HEMATOCRIT 38.5 % (36-48); LYMPHOCYTES % (AUTO) 20.1 % (21.0-51.0); MEAN CORPUSCULAR HGB CONC 33.8 g/dL (32.0-36.0); MEAN CORPUSCULAR VOLUME 85.7 fL (79-99); MONOCYTES % (AUTO) 3.5 % (3.0-13.0); NEUTROPHILS % (AUTO) 70.1 % (40.0-77.0); PLATELET COUNT (AUTO) 280 K/uL (130-400); RED BLOOD CELL COUNT(AUTO) 4.49 MIL/uL (4.00-5.50); RED CELL DISTRIBUTION WIDTH 12.7 % (11.0-15.5); WHITE BLOOD COUNT (AUTO) 10.8 K/uL (4.8-10.8)
[2019-08-31 04:50] LABS: CARBON DIOXIDE 19 mmol/L (21-32); CHLORIDE 103 mmol/L (101-111); CREATININE 0.6 mg/dL (0.5-1.5); GLOMERULAR FILTR. RATE CALC 107 mL/min (>60); GLUCOSE,RANDOM 173 mg/dL (70-105); POTASSIUM 4.3 mmol/L (3.5-5.1); SODIUM SERUM 133 mmol/L (136-145); UREA NITROGEN, BLOOD 29 mg/dL (7-18)
[2019-08-31 05:12] LABS: CRP QUANTITATIVE < 2.00 mg/L (0.00-9.0)
[2019-08-31] MEDS: ZINC SULFATE 220 CAPSULE PO SCH (08:19)
[2019-08-31] MEDS: METFORMIN HCL 500 MG TABLET PO SCH ×3 (08:19→16:53)
[2019-08-31] MEDS: ACETYLCYSTEINE 600 MG CAPSULE PO SCH ×2 (08:19→19:42)
[2019-08-31] MEDS: METOPROLOL SUCCINATE 50 MG TAB.SR.24H PO SCH (08:19)
[2019-08-31] MEDS: FAMOTIDINE 20MG TAB 20 MG TAB PO SCH ×2 (08:19→19:42)
[2019-08-31] MEDS: BENZONATATE 100 MG CAPSULE PO SCH ×3 (08:19→19:42)
[2019-08-31] MEDS: ASCORBIC ACID 500 MG TAB PO SCH (08:19)
[2019-08-31] MEDS: LEVOTHYROXINE 75 MCG TABLET PO SCH (08:19)
[2019-08-31] MEDS: DEXAMETHASONE 4 MG TAB PO SCH ×3 (08:20→19:42)
[2019-08-31] MEDS: URSODIOL 500 MG PO SCH ×2 (08:20→19:43)
[2019-08-31] MEDS: ENOXAPARIN SODIUM 40 MG/0.4 ML SYRINGE SQ SCH (08:20)
[2019-08-31] MEDS: TRELEGY ELLIPTA IH SCH (08:20)
[2019-08-31 08:27] VITALS: BP 113/67
--- NOTE | 2019-08-31 11:55 | NUR ---
CM NOTE/[facility] PER KAYLA AT [facility], REFERRAL UNDER PROCESS AND WILL CALL ME BACK WITH DETAILS FOR HOME O2.
[2019-08-31 12:43] VITALS: BP 108/65
--- NOTE | 2019-08-31 13:02 | NUR ---
Family notification Attempted to call Skip Lemon; call went straight to voicemail
[2019-08-31] MEDS: FLUCONAZOLE 100 MG TAB PO SCH (14:27)
[2019-08-31 15:48] VITALS: BP 94/49
[2019-08-31 19:00] VITALS: BP 155/74
--- NOTE | 2019-08-31 21:30 | NUR ---
UPDATE SPOKE TO DAUGHTER ON PHONE SHEILA, UPDATE GIVEN AND PLAN OF CARE , PENDING PLASMA FOR TONITE, TEACH BOTH PLAN OF CARE AND EXPECTED OUTCOME, LEFT HAND 20 GAUGE C/O PAIN WITH FLUSHING, DISCONTINUED APPLY DRESSING AND TAPE , RESTART IV RIGHT WRIST 22 GAUGE, ATTEMPTX1 AND SUCCESSFUL, TOLERATED WELL, CALL CAMACHO AT REACH
--- NOTE | 2019-08-31 22:45 | NUR ---
PLASMA ONE UNIT OF PLASMA STARTED VIA RIGHT WRIST 22 GAUGE CATHETER, TEMP,97.7 F PULSE 58 R 18 B/127/47, SAT 93 % ON 1 L N/C, TOLERATING WELL
--- NOTE | 2019-08-31 23:00 | NUR ---
NURSING OBS TOLERATING PLASMA WELL, NO REACTION NOTED, TEMP 97.5 F, PULSE 63 FR 18 B/P 117/60, SAT 94 % ON OXYGEN AT 1 L N/C
--- NOTE | 2019-08-31 23:30 | NUR ---
NURSING OBS PLASMA INFUSION COMPLETE , NO REACTION NOTED, TOLERATED WELL, TEMP 97.7 F, PULSE 58/ R 18 B/P 113/72,SAT 93 % ON OXYGEN AT 1 L N/C
[2019-09-01] VITALS: BP 113/72
[2019-09-01 03:47] VITALS: BP 128/73
[2019-09-01] MEDS: CLOTRIMAZOLE 10 MG TROCHE MM SCH ×3 (04:41→21:59)
[2019-09-01 08:00] LABS: BASOPHILS % (AUTO) 0.1 % (0.0-5.0); HEMATOCRIT 38.1 % (36-48); LYMPHOCYTES % (AUTO) 18.4 % (21.0-51.0); MEAN CORPUSCULAR HEMOGLOBIN 29.4 pg (27.0-33.0); MEAN CORPUSCULAR HGB CONC 33.9 g/dL (32.0-36.0); MEAN CORPUSCULAR VOLUME 86.8 fL (79-99); MONOCYTES % (AUTO) 4.8 % (3.0-13.0); NEUTROPHILS % (AUTO) 71.4 % (40.0-77.0); PLATELET COUNT (AUTO) 257 K/uL (130-400); RED BLOOD CELL COUNT(AUTO) 4.39 MIL/uL (4.00-5.50); RED CELL DISTRIBUTION WIDTH 12.9 % (11.0-15.5); WHITE BLOOD COUNT (AUTO) 9.3 K/uL (4.8-10.8)
[2019-09-01 08:22] VITALS: BP 144/81
[2019-09-01] MEDS: ACETYLCYSTEINE 600 MG CAPSULE PO SCH ×2 (08:22→20:29)
[2019-09-01] MEDS: LEVOTHYROXINE 75 MCG TABLET PO SCH (08:22)
[2019-09-01] MEDS: FAMOTIDINE 20MG TAB 20 MG TAB PO SCH ×2 (08:22→20:29)
[2019-09-01] MEDS: METOPROLOL SUCCINATE 50 MG TAB.SR.24H PO SCH (08:22)
[2019-09-01] MEDS: ZINC SULFATE 220 CAPSULE PO SCH (08:22)
[2019-09-01] MEDS: DEXAMETHASONE 4 MG TAB PO SCH ×3 (08:22→20:29)
[2019-09-01] MEDS: BENZONATATE 100 MG CAPSULE PO SCH ×3 (08:22→20:29)
[2019-09-01] MEDS: METFORMIN HCL 500 MG TABLET PO SCH ×3 (08:22→17:33)
[2019-09-01] MEDS: ASCORBIC ACID 500 MG TAB PO SCH (08:22)
[2019-09-01] MEDS: ENOXAPARIN SODIUM 40 MG/0.4 ML SYRINGE SQ SCH (08:23)
[2019-09-01] MEDS: TRELEGY ELLIPTA IH SCH (08:23)
[2019-09-01] MEDS: URSODIOL 500 MG PO SCH ×2 (08:23→20:30)
[2019-09-01 08:51] LABS: CARBON DIOXIDE 19 mmol/L (21-32); CHLORIDE 104 mmol/L (101-111); CREATININE 0.6 mg/dL (0.5-1.5); GLOMERULAR FILTR. RATE CALC 107 mL/min (>60); GLUCOSE,RANDOM 169 mg/dL (70-105); LACTATE DEHYDROGENASE 194 U/L (81-234); POTASSIUM 4.3 mmol/L (3.5-5.1); SODIUM SERUM 131 mmol/L (136-145); UREA NITROGEN, BLOOD 28 mg/dL (7-18)
[2019-09-01 11:49] VITALS: BP 141/79
[2019-09-01 13:40] LABS: CRP QUANTITATIVE < 2.00 mg/L (0.00-9.0)
--- NOTE | 2019-09-01 14:15 | NUR ---
AAOX4. RESTING QUIETLY IN BED AT THIS TIME IN NO APPARENT DISTRESS. ISOLATION PRECAUTIONS MAINTAINED. DENIES ANY NEEDS/PAIN. RESPIRATIONS EVEN AND UNLABORED AT REST. PLACED ON ROOM AIR, O2 SAT STABLE WHILE RESTING. PT REPORTED TO DR. CRANE THAT SHE BELIEVES SHE HAS OXYGEN AT HOME, BUT NOT SURE. SPOKE WITH PT'S DAUGHTER, SHEILA VIA PHONE AT [phone], TO VERIFY HOME O2 STATUS. SHEILA STATED, "SHE DOESN'T HAVE OXYGEN AT HOME. LAST I KNOW, WE WERE STILL WAITING ON IT." RT NOTIFIED TO RE-EVAL PT'S STATUS FOR HOME O2. CONTINUOUS MONITORING ONGOING. SAFETY MEASURES IN PLACE.
[2019-09-01] MEDS: FLUCONAZOLE 100 MG TAB PO SCH (14:41)
--- NOTE | 2019-09-01 15:15 | NUR ---
O2 FOLLOW UP CM spoke to product support representative from [facility]. States home o2 requires prior auth. Will not be ready until possibly Tuesday. CM to follow up.
[2019-09-01 16:44] VITALS: BP 123/63
[2019-09-01 19:00] VITALS: BP 147/75
--- NOTE | 2019-09-01 20:00 | NUR ---
assessment note patient awake, alert, ox3, no sob, no c/o pain at this time, on r/a , saturation 92 %, patient states feels much better today, teach patient plan of care and expected outcome, patient verbalizes understanding via teach back
[2019-09-02] VITALS: BP 130/73
[2019-09-02 04:00] VITALS: BP 123/70
[2019-09-02] MEDS: CLOTRIMAZOLE 10 MG TROCHE MM SCH ×3 (04:57→20:44)
[2019-09-02 07:56] LABS: BASOPHILS % (AUTO) 0.1 % (0.0-5.0); LYMPHOCYTES % (AUTO) 19.9 % (21.0-51.0); MEAN CORPUSCULAR HEMOGLOBIN 29.2 pg (27.0-33.0); MEAN CORPUSCULAR HGB CONC 33.8 g/dL (32.0-36.0); MEAN CORPUSCULAR VOLUME 86.3 fL (79-99); MONOCYTES % (AUTO) 6.4 % (3.0-13.0); NEUTROPHILS % (AUTO) 69.7 % (40.0-77.0); PLATELET COUNT (AUTO) 242 K/uL (130-400); RED BLOOD CELL COUNT(AUTO) 4.52 MIL/uL (4.00-5.50); RED CELL DISTRIBUTION WIDTH 12.9 % (11.0-15.5)
[2019-09-02 08:18] LABS: CREATININE 0.7 mg/dL (0.5-1.5); POTASSIUM 4.3 mmol/L (3.5-5.1)
[2019-09-02 08:34] VITALS: BP 110/62
[2019-09-02] MEDS: URSODIOL 500 MG PO SCH ×2 (09:00→20:57)
[2019-09-02] MEDS: TRELEGY ELLIPTA IH SCH (09:00)
[2019-09-02] MEDS: BENZONATATE 100 MG CAPSULE PO SCH ×3 (10:22→20:44)
[2019-09-02] MEDS: ZINC SULFATE 220 CAPSULE PO SCH (10:23)
[2019-09-02] MEDS: LEVOTHYROXINE 75 MCG TABLET PO SCH (10:23)
[2019-09-02] MEDS: DEXAMETHASONE 4 MG TAB PO SCH ×2 (10:23→20:43)
[2019-09-02] MEDS: FAMOTIDINE 20MG TAB 20 MG TAB PO SCH ×2 (10:24→20:44)
[2019-09-02] MEDS: ASCORBIC ACID 500 MG TAB PO SCH (10:24)
[2019-09-02] MEDS: METOPROLOL SUCCINATE 50 MG TAB.SR.24H PO SCH (10:24)
[2019-09-02] MEDS: METFORMIN HCL 500 MG TABLET PO SCH ×3 (10:24→17:00)
[2019-09-02] MEDS: ACETYLCYSTEINE 600 MG CAPSULE PO SCH ×2 (10:24→20:44)
[2019-09-02] MEDS: ENOXAPARIN SODIUM 40 MG/0.4 ML SYRINGE SQ SCH (10:30)
[2019-09-02 11:07] VITALS: BP 116/67
--- NOTE | 2019-09-02 14:32 | NUR ---
[facility] RESPIRATORY AMBULATED PATIENT, WHEN AMBULATING O2 DROPPED TO 85%. PT BACK ON O2 VIA NC AT 2L AND OXYGEN AT 95%. NOTIFIED DR CRANE. PATIENT PENDING HOME O2 APPROVAL.
[2019-09-02] MEDS: FLUCONAZOLE 100 MG TAB PO SCH (14:46)
[2019-09-02 17:28] VITALS: BP 110/74
[2019-09-02 21:54] VITALS: BP 127/68
[2019-09-03] VITALS (7 sets, daily range): BP systolic 116–157; BP diastolic 51–77
[2019-09-03] MEDS: CLOTRIMAZOLE 10 MG TROCHE MM SCH ×3 (05:28→21:36)
[2019-09-03 07:45] LABS: BASOPHILS % (AUTO) 0.2 % (0.0-5.0); LYMPHOCYTES % (AUTO) 19.5 % (21.0-51.0); MEAN CORPUSCULAR HEMOGLOBIN 29.5 pg (27.0-33.0); MEAN CORPUSCULAR HGB CONC 34.2 g/dL (32.0-36.0); MEAN CORPUSCULAR VOLUME 86.2 fL (79-99); MONOCYTES % (AUTO) 5.3 % (3.0-13.0); NEUTROPHILS % (AUTO) 72.3 % (40.0-77.0); PLATELET COUNT (AUTO) 233 K/uL (130-400); RED BLOOD CELL COUNT(AUTO) 4.41 MIL/uL (4.00-5.50); RED CELL DISTRIBUTION WIDTH 12.9 % (11.0-15.5); WHITE BLOOD COUNT (AUTO) 6.4 K/uL (4.8-10.8)
[2019-09-03 08:44] LABS: CARBON DIOXIDE 17 mmol/L (21-32); CHLORIDE 102 mmol/L (101-111); CREATININE 0.6 mg/dL (0.5-1.5); GLOMERULAR FILTR. RATE CALC 107 mL/min (>60); GLUCOSE,RANDOM 170 mg/dL (70-105); LACTATE DEHYDROGENASE 205 U/L (81-234); POTASSIUM 4.1 mmol/L (3.5-5.1); SODIUM SERUM 132 mmol/L (136-145); UREA NITROGEN, BLOOD 37 mg/dL (7-18)
[2019-09-03 08:48] LABS: CRP QUANTITATIVE < 2.00 mg/L (0.00-9.0)
[2019-09-03] MEDS: TRELEGY ELLIPTA IH SCH (09:00)
[2019-09-03] MEDS: URSODIOL 500 MG PO SCH ×2 (09:00→21:00)
[2019-09-03] MEDS: LEVOTHYROXINE 75 MCG TABLET PO SCH (10:16)
[2019-09-03] MEDS: BENZONATATE 100 MG CAPSULE PO SCH ×3 (10:16→21:36)
[2019-09-03] MEDS: METFORMIN HCL 500 MG TABLET PO SCH ×3 (10:16→17:00)
[2019-09-03] MEDS: ASCORBIC ACID 500 MG TAB PO SCH (10:16)
[2019-09-03] MEDS: ACETYLCYSTEINE 600 MG CAPSULE PO SCH ×2 (10:16→21:34)
[2019-09-03] MEDS: DEXAMETHASONE 4 MG TAB PO SCH ×2 (10:17→21:34)
[2019-09-03] MEDS: METOPROLOL SUCCINATE 50 MG TAB.SR.24H PO SCH (10:17)
[2019-09-03] MEDS: FAMOTIDINE 20MG TAB 20 MG TAB PO SCH ×2 (10:17→21:34)
[2019-09-03] MEDS: ENOXAPARIN SODIUM 40 MG/0.4 ML SYRINGE SQ SCH (10:19)
[2019-09-03] MEDS: ZINC SULFATE 220 CAPSULE PO SCH (10:21)
--- NOTE | 2019-09-03 13:03 | NUR ---
CM NOTE/[facility] PENDING AUTH FOR O2 PER KAYLA AT [facility], PENDING AUTHORIZATION FOR HOME O2 FROM SUPERIOR EXCHANGE. PER KAYLA, PATIENT HAS COPAY. SPOUSE AND DAUGHTER PHONE NUMBER GIVEN, SAME FACE SHEET THAT WAS INCLUDED IN HOME OXYGEN REFERRAL. CM TO FOLLOW UP ACCORDINGLY.
[2019-09-03] MEDS: FLUCONAZOLE 100 MG TAB PO SCH (13:13)
[2019-09-04 04:40] VITALS: BP 121/59
[2019-09-04] MEDS: CLOTRIMAZOLE 10 MG TROCHE MM SCH ×2 (06:24→15:26)
[2019-09-04 06:39] LABS: BASOPHILS % (AUTO) 0.2 % (0.0-5.0); HEMATOCRIT 38.7 % (36-48); LYMPHOCYTES % (AUTO) 16.6 % (21.0-51.0); MEAN CORPUSCULAR HEMOGLOBIN 29.2 pg (27.0-33.0); MEAN CORPUSCULAR HGB CONC 33.6 g/dL (32.0-36.0); MONOCYTES % (AUTO) 6.4 % (3.0-13.0); NEUTROPHILS % (AUTO) 75.6 % (40.0-77.0); PLATELET COUNT (AUTO) 193 K/uL (130-400); RED BLOOD CELL COUNT(AUTO) 4.45 MIL/uL (4.00-5.50); RED CELL DISTRIBUTION WIDTH 13.1 % (11.0-15.5); WHITE BLOOD COUNT (AUTO) 5.8 K/uL (4.8-10.8)
[2019-09-04 06:54] LABS: CARBON DIOXIDE 19 mmol/L (21-32); CHLORIDE 103 mmol/L (101-111); CREATININE 0.6 mg/dL (0.5-1.5); GLOMERULAR FILTR. RATE CALC 107 mL/min (>60); GLUCOSE,RANDOM 178 mg/dL (70-105); LACTATE DEHYDROGENASE 217 U/L (81-234); POTASSIUM 4.2 mmol/L (3.5-5.1); SODIUM SERUM 134 mmol/L (136-145); UREA NITROGEN, BLOOD 40 mg/dL (7-18)
[2019-09-04] MEDS: ACETYLCYSTEINE 600 MG CAPSULE PO SCH (08:08)
[2019-09-04] MEDS: METFORMIN HCL 500 MG TABLET PO SCH ×2 (08:09→12:07)
[2019-09-04] MEDS: DEXAMETHASONE 4 MG TAB PO SCH (08:09)
[2019-09-04] MEDS: URSODIOL 500 MG PO SCH (08:09)
[2019-09-04] MEDS: ASCORBIC ACID 500 MG TAB PO SCH (08:09)
[2019-09-04] MEDS: TRELEGY ELLIPTA IH SCH (08:09)
[2019-09-04] MEDS: FAMOTIDINE 20MG TAB 20 MG TAB PO SCH (08:09)
[2019-09-04] MEDS: LEVOTHYROXINE 75 MCG TABLET PO SCH (08:09)
[2019-09-04] MEDS: ZINC SULFATE 220 CAPSULE PO SCH (08:09)
[2019-09-04] MEDS: METOPROLOL SUCCINATE 50 MG TAB.SR.24H PO SCH (08:10)
[2019-09-04] MEDS: ENOXAPARIN SODIUM 40 MG/0.4 ML SYRINGE SQ SCH (08:11)
[2019-09-04] MEDS: BENZONATATE 100 MG CAPSULE PO SCH ×2 (08:11→14:00)
[2019-09-04 09:16] VITALS: BP 119/63
[2019-09-04 11:39] VITALS: BP 153/59
[2019-09-04] MEDS: FLUCONAZOLE 100 MG TAB PO SCH (15:26)
[2019-09-04 16:37] VITALS: BP 134/74
--- NOTE | 2019-09-04 16:47 | NUR ---
CM NOTE/DID NOT QUALIFY FOR HOME O2 PER RT NOTES FROM HOME OXYGEN EVALUATION, LOWEST SATURATION WAS 90%, NO QUALIFYING FOR HOME O2. FERNANDA TUTTLE MADE AWARE. DR. LIM MADE AWARE, PER MD, WILL DC HOME TONIGHT WITHOUT OXYGEN.
--- NOTE | 2019-09-04 16:57 | NUR ---
CM NOTE/[facility] CALLED [facility] TO CANCEL ORDER FOR OXYGEN, ANSWERING SERVICE ANSWERED. REQUEST MADE THRU ANSWERING SERVICE. PER DR. LIM, WILL DC HOME WITHOUT OXYGEN.
[2019-09-04] MEDS ORDERED: ASPI-1012 PO (17:19)
[2019-09-04] MEDS ORDERED: METH4TAB3 PO (17:19)
== END 2019-09-04 19:00 | disposition home or self-care (01) | DRG 177 ==
LOC: EDH 12:15 → EDHIP 16:00 → 4BH 08-23 01:56
PROVIDERS: ADMIT Family Medicine; ATTEND Family Medicine
PROC: 30233K1 Transfusion of Nonautologous Frozen Plasma into Peripheral Vein, Percutaneous Approach (ICD-10-PCS; principal; 2019-08-22)
DX: U07.1 COVID-19 (principal); J96.01 Acute respiratory failure with hypoxia; J12.89 Other viral pneumonia; B37.0 Candidal stomatitis; I25.10 Atherosclerotic heart disease of native coronary artery without angina pectoris; I10 Essential (primary) hypertension; E78.00 Pure hypercholesterolemia, unspecified; E03.9 Hypothyroidism, unspecified; E78.5 Hyperlipidemia, unspecified; E11.9 Type 2 diabetes mellitus without complications; R53.81 Other malaise; E66.9 Obesity, unspecified; Z68.26 Body mass index [BMI] 26.0-26.9, adult; Z95.1 Presence of aortocoronary bypass graft
CPT/HCPCS: 0099U; 36415; 36430; 36600; 71045; 71250; 80048; 80053; 82550; 82728; 82803; 82948; 83036; 83605; 83615; 84145; 84484; 85025; 85378; 85610; 85730; 86140; 86850; 86900; 86901; 86927; 87040; 87486; 87581; 87633; 87798; 93005; 94760; 99291; G0378; J0360; J0696; J1650; J2920; J3490; J8540; U0003

== ENCOUNTER → 2020-04-29 | Outpatient (CLI) | payer MEDICARE ==
[~2020-04-29] MED LIST: ASPI-1012 PO; BENZ-39 PO; FLUT1BLS3 IH; LEVO75TA10 PO; METF-444 PO; METH4TAB3 PO; URSO500T10 PO
== END | disposition home or self-care (01) ==
LOC: RAH 08:38 → EDBD 08:38
PROVIDERS: ATTEND Internal Medicine Cardiovascular Disease
DX: K76.0 Fatty (change of) liver, not elsewhere classified (principal); R94.5 Abnormal results of liver function studies
CPT/HCPCS: 76705

== ENCOUNTER → 2020-09-07 | Outpatient (CLI) | payer MEDICARE | END | disposition home or self-care (01) | LOC: SHCH 08-25 08:57 | PROVIDERS: ATTEND Internal Medicine Cardiovascular Disease | DX: R06.00 Dyspnea, unspecified (principal) | CPT/HCPCS: 93306; 93356 ==

== ENCOUNTER → 2021-06-08 | Outpatient (CLI) | payer MEDICARE, OTHER ==
[2021-06-08 13:07] LABS: ALBUMIN 3.6 g/dL (3.5-5.0); BILIRUBIN,DIRECT 0.1 mg/dL (0.0-0.3); BILIRUBIN,TOTAL 0.3 mg/dL (0.2-1.0); TOTAL PROTEIN, SERUM 7.3 g/dL (6.0-8.3)
== END | disposition home or self-care (01) ==
LOC: LAB 08:49
PROVIDERS: ATTEND Internal Medicine Cardiovascular Disease
DX: I25.2 Old myocardial infarction (principal); Z95.1 Presence of aortocoronary bypass graft
CPT/HCPCS: 36415; 80061; 80076

== ENCOUNTER → 2021-12-21 | Outpatient (CLI) | payer OTHER ==
[2021-12-21 12:35] LABS: ALBUMIN 3.6 g/dL (3.5-5.0); CREATININE 0.9 mg/dL (0.5-1.5); POTASSIUM 4.5 mmol/L (3.5-5.1); TOTAL PROTEIN, SERUM 7.9 g/dL (6.0-8.3)
== END | disposition home or self-care (01) ==
LOC: LAB 08:42
PROVIDERS: ATTEND Internal Medicine Cardiovascular Disease
DX: I10 Essential (primary) hypertension (principal); E78.5 Hyperlipidemia, unspecified; Z95.1 Presence of aortocoronary bypass graft
CPT/HCPCS: 36415; 80053; 80061